=== PATIENT | female | born 1985 | race Caucasian/White ===

== ENCOUNTER 2024-05-15 15:05 | Emergency (ER) | payer BC, OTHER, SELFPAY ==
[2024-05-15] VITALS (10 sets, daily range): BP systolic 77–146; BP diastolic 59–91; PULSE 50–66; BMI 31.7
[2024-05-15 15:55] LABS: % Basophils 0.8 % (0-2); % Eosinophils 1.9 % (0-6); % Immature Granulocytes 0.3 % (0-0.5); % Lymphocytes 24.2 % (20.5-51.1); % Monocytes 5.7 % (1.7-9.3); % Neutrophils 67.1 % (42.2-75.2); Absolute Basophils 0.1 10^3/uL (0-0.2); Absolute Eosinophils 0.1 10^3/uL (0-0.7); Absolute Lymphocytes 1.8 10^3/uL (1.2-3.4); Absolute Monocytes 0.4 10^3/uL (0.1-0.6); Absolute Neutrophils 5.1 10^3/uL (1.4-6.5); Hematocrit 43.9 % (37.0-47.0); Hemoglobin 14.9 g/dL (12.0-16.0); Mean Corp Hgb Conc. 33.9 g/dL (33.0-37.0); Mean Corpuscular Hgb 30.2 pg (27.0-31.0); Mean Corpuscular Volume 88.9 fL (81.0-99.0); Mean Platelet Volume 10.6 fL (7.4-10.4); Nucleated Red Blood Cells % 0 %; Platelet Count 164 10^3/uL (130-400); Red Blood Cell Count 4.94 10^6/uL (4.20-5.40); Red Cell Dist. Width 12.6 % (11.5-14.5); White Blood Cell Count 7.6 10^3/uL (4.8-10.8)
[2024-05-15 15:56] LABS: Urine Albumin Negative (Neg - Trace); Urine Bilirubin Negative (Negative); Urine Character Clear (Clear); Urine Color Yellow; Urine Glucose Negative (Negative); Urine Ketone Negative (Negative); Urine Leukocyte Negative (Negative); Urine Nitrite Negative (Negative); Urine Occult Blood Negative (Negative); Urine Urobilinogen Negative (Neg - 1+)
[2024-05-15 15:59] LABS: HCG, Urine Qualitative Screen Negative
[2024-05-15 16:07] LABS: ALT (SGPT) 25 U/L (0-35); AST (SGOT) 35 U/L (14-36); Alkaline Phosphatase 29 U/L (38-126); Blood Urea Nitrogen 9 mg/dl (7-17); Calcium 9.8 mg/dl (8.4-10.2); Carbon Dioxide 28 mmol/L (22-30); Chloride 104 mmol/L (98-107); Glucose 95 mg/dl (70-99); Lipase 45 U/L (23-300); Potassium 4.2 mmol/L (3.5-5.1); Sodium 139 mmol/L (135-145); Total Bilirubin 0.8 mg/dl (0.2-1.3); Total Protein 7.4 g/dl (6.3-8.2); eGFR > 60.00
[2024-05-15] MEDS: NSS 1000 IV ×2 (18:30→20:35)
[2024-05-15 18:47] LABS: TSH Reflex To Free T4 1.11 uIU/ml (0.47-4.68)
[2024-05-15] MEDS: TYLENOL 1000 MG PO (21:08)
[2024-05-15] MEDS: ANTIVERT 25 MG PO (21:08)
--- NOTE | 2024-05-15 21:10 | ED.GENMED ---
History of Present Illness
<Katie Holt NP - Last Filed: 05/21/24 19:37>
General
Chief Complaint: Abdominal Symptoms
Source: patient
Exam Limitations: none
Time Seen by Provider: 05/15/24 17:01
Nursing documentation reviewed up to this point in time: agreed with
History of Present Illness
History of Present Illness:
Patient states she was away on vacation at last week. Returned home this weekend. Tried to go for a run on Saturday but the heat an humidity caused her to stop. She states she rehydrated and continued on with her day. Saturday PM she was
standing in her kitchen, felt faint and passed out. Hit her head on tile floor. Saturday she was seen at and dx with concussion. Given IV fluids and instructions to rest. States she has since developed headache, dizziness, nausea. Has had
concussions in the past but has not experienced these symptoms. Brought to ED by spouse for eval.
Past History
<Katie Holt NP - Last Filed: 05/21/24 19:37>
Past History
ED Past Medical History: None and Psychiatric
Social History
Tobacco: Non-smoker
Alcohol: Occasional
Personal:
Living: with family
Review of Systems
<Katie Holt NP - Last Filed: 05/21/24 19:37>
Review of Systems
Allergies reviewed?: Yes
All Other Systems: ROS reviewed and negative except as documented in HPI and ROS
Constitutional: Reports no symptoms
EENT: Reports no symptoms
Respiratory: Reports no symptoms
Cardiac: Reports no symptoms
ABD/GI: Reports nausea
: Reports no symptoms
Musculoskeletal: Reports no symptoms
Skin: Reports no symptoms
Neurological: Reports dizzy and headache
Psychiatric: Reports no symptoms
Phy Exam
<Katie Holt NP - Last Filed: 05/21/24 19:37>
General Physical Exam
General Presentation: well appearing and mild distress
General age: appears stated age
General Skin: warm and dry
General Habitus: normal
General Mental: alert
Cardiovascular Exam
Cardiovascular Exam: regular rate/rhythm and no edema
Pulmonary Exam
Pulmonary Exam: lungs clear and no respiratory distress
Neurological Exam
Neurological Exam: alert, oriented x3, CN II-XII intact, no motor deficits, no sensory deficits, speech normal and normal gait
Mental
Mental Status: oriented to person, oriented to place and oriented to time
Describe Speech: normal speech
Cranial
Cranial Nerves: normal and no facial asymetry
EOM (CN3/4/6): intact
Motor
Seizure Activity: none
Gait: normal
Right upper extremity: 4
Right lower extremity: 4
Left upper extremity: 4
Left lower extremity: 4
Bilateral upper extremities: 4
Bilateral lower extremities: 4
Sensory
Sensory Exam: intact
Cerebellar
Cerebellar Function: normal Romberg test
Musculoskeletal Exam
Musculoskeletal Exam: full ROM and neuro vasc intact
Skin Exam
Skin Exam: normal color, warm/dry and no rash
Psychiatric Exam
Psychiatric Exam: normal mood/affect
Course
<Katie Holt NP - Last Filed: 05/21/24 19:37>
Orders/Labs/Results
Orders:
Orders
05/15/24 15:19
IV Insert/Care/Rem.- Treatment PRN
Test Result ONCE
05/15/24 15:38
Complete Blood Count/With Diff Urgent
Comprehensive Metabolic Panel Urgent
HCG, Urine Qualitative Screen Urgent
Date Specimen was Collected: 05/15/24
Time Specimen was Collected: 15:19
Lipase Urgent
TSH Reflex To Free T4 Urgent
Comment: ADD ON
Urinalysis Reflex To Culture Urgent
Date Specimen was Collected: 05/15/24
Time Specimen was Collected: 15:19
05/15/24 17:50
Electrocardiogram (*1) Urgent
Reason for Study: Syncope
EKG- Treatment ONCE
Orthostatic VS- Treatment ONCE
0.9% Sodium Chloride 1000 ml [Nss] 1,000 ml IV BOLUS
05/15/24 17:51
Add On- LAB Urgent
Tests Added?: TSH reflex free T4
05/15/24 18:37
CT Head W/o Iv Contrast Urgent
Comment:
Reason For Exam: trauma
05/15/24 20:12
0.9% Sodium Chloride 1000 ml [Nss] 1,000 ml IV BOLUS
05/15/24 21:01
Acetaminophen [Tylenol] 1,000 mg PO NOW STA
Meclizine [Antivert] 25 mg PO NOW STA
Abnormal Lab Results
05/15/24
15:38
MPV 10.6 H fL
(7.4-10.4)
Alkaline Phosphatase 29 L U/L
(38-126)
05/15/24 15:38
05/15/24 15:38
Vital Signs
Initial and Last Documented VS:
Initial Vital Signs
Temp Pulse Resp BP Pulse Ox
98.3 F 71 18 130/79 99
05/15/24 15:17 05/15/24 15:17 05/15/24 15:17 05/15/24 15:17 05/15/24 15:17
Last Documented Vital Signs
Temp Pulse Resp BP Pulse Ox
98.3 F 69 18 125/85 99
05/15/24 15:17 05/15/24 22:15 05/15/24 15:17 05/15/24 22:00 05/15/24 15:17
antwan;Andre Cox DO - Last Filed: 05/15/24 21:37>
Orders/Labs/Results
Orders:
Orders
05/15/24 15:19
IV Insert/Care/Rem.- Treatment PRN
Test Result ONCE
05/15/24 15:38
Complete Blood Count/With Diff Urgent
Comprehensive Metabolic Panel Urgent
HCG, Urine Qualitative Screen Urgent
Date Specimen was Collected: 05/15/24
Time Specimen was Collected: 15:19
Lipase Urgent
TSH Reflex To Free T4 Urgent
Comment: ADD ON
Urinalysis Reflex To Culture Urgent
Date Specimen was Collected: 05/15/24
Time Specimen was Collected: 15:19
05/15/24 17:50
Electrocardiogram (*1) Urgent
Reason for Study: Syncope
EKG- Treatment ONCE
Orthostatic VS- Treatment ONCE
0.9% Sodium Chloride 1000 ml [Nss] 1,000 ml IV BOLUS
05/15/24 17:51
Add On- LAB Urgent
Tests Added?: TSH reflex free T4
05/15/24 18:37
CT Head W/o Iv Contrast Urgent
Comment:
Reason For Exam: trauma
05/15/24 20:12
0.9% Sodium Chloride 1000 ml [Nss] 1,000 ml IV BOLUS
05/15/24 21:01
Acetaminophen [Tylenol] 1,000 mg PO NOW STA
Meclizine [Antivert] 25 mg PO NOW STA
Abnormal Lab Results
05/15/24
15:38
MPV 10.6 H fL
(7.4-10.4)
Alkaline Phosphatase 29 L U/L
(38-126)
05/15/24 15:38
05/15/24 15:38
Vital Signs
Initial and Last Documented VS:
Initial Vital Signs
Temp Pulse Resp BP Pulse Ox
98.3 F 71 18 130/79 99
05/15/24 15:17 05/15/24 15:17 05/15/24 15:17 05/15/24 15:17 05/15/24 15:17
Last Documented Vital Signs
Temp Pulse Resp BP Pulse Ox
98.3 F 69 18 125/85 99
05/15/24 15:17 05/15/24 22:15 05/15/24 15:17 05/15/24 22:00 05/15/24 15:17
<Katie Holt NP - Last Filed: 05/21/24 19:37>
*Radiology
Radiology exam reviewed: radiology read reviewed
*Critical Care Note
Total Time (30-74mins, 75-104mins- exclusive of procedures): Not Applicable
<Katie Holt NP - Last Filed: 05/21/24 19:37>
Update Note
Update Note:
Case discussed with Dr. Cox who also evaluated this patient. Labs reviewed. Symptoms most like resulting from recent head injury. WIll discharge home. Close follow up with PCP. given instructions on s/s to return to ED and she is
ageeable to plan.
ED Attending Note
<Katie Holt NP - Last Filed: 05/21/24 19:37>
-
Portions of this chart may have been created with voice recognition software.� Occasional wrong word or��sound alike� substitutions may have occurred due to the inherent limitations of voice recognition software.
<Andre Cox DO - Last Filed: 05/15/24 21:37>
ED Attending Note
Patient seen and examined by attending physician: Yes
I performed the substantive portion of visit, reviewed & personally made and approve the management plan that is documented in note by myself or GRISELDA.: Yes
ED Attending Note:
Patient is a 38-year-old female who presents to the emergency department with dizziness and labile heart rate. Patient states that 5 days ago after coming home for sure she went out to 4 1 and a 95 degree heat and putting complete at 3 mile run.
Patient runs 5 days a week. Patient became overheated. Patient did her usual activities during the day and never felt fully back to baseline. Last night patient passed out and hit her head on the tile floor. Since that time patient's been
nauseous and had episodes of dizziness and having her heart beat run from 40-1 40 and back. Patient has had multiple studies and workup which have been unremarkable. On physical exam the patient does not appear to be in any distress.
Neurologically patient is intact. No signs of any cardiac issues. On review of the patient's workup the studies suggest post concussive syndrome. Patient will be discharged on meclizine and referred to neurology.
Discharge Plan
Departure
Patient Disposition: Home (Routine Discharge)
Date of Disposition: 05/15/24
Time of Disposition: 22:05
Patient with high blood pressure during this ER visit?: No
Condition: Good
Covid-19: Not Applicable
Discharge Problem:
Head injury
Instructions: Head injury in adults, Concussion, Adult ED
Prescriptions:
New
meclizine 25 mg tablet
25 mg PO TID PRN (Reason: dizziness) Qty: 20 0RF
Referrals:
Fred Avina MD [Active] - Call in 1-3 days for appt
Candelario Gleason MD [Active] - Call in 1-3 days for appt
NONE,* [Family Provider] -
Interventions
Interventions:
*Risk Screen - Suicide Last Done: 05/15/24 15:17
*General Assessment Last Done: 05/15/24 15:17
*Neglect/Abuse Screening Last Done: 05/15/24 15:17
ED- Fall Risk Assessment Last Done: 05/15/24 22:31
*ED COVID-19 Vaccine History Last Done: 05/15/24 15:17
*Nursing Disposition Last Done: 05/15/24 22:31
[id number] Assessment Last Done: 05/15/24 18:00
Discharge Date and Time
Discharge Date/Time: 05/15/24 22:33
Print Language: [place]
== END 2024-05-15 22:33 | disposition home or self-care (01) ==
LOC: EMR 15:05
PROVIDERS: EMERGENCY PHYSICIAN Emergency Medicine
DX: S09.90XA Unspecified injury of head, initial encounter (principal); X58.XXXA Exposure to other specified factors, initial encounter
CPT/HCPCS: 99284; 96360; 96361; 70450; 80053; 81003; 81025; 83690; 84443; 85025; 93005

== ENCOUNTER → 2024-08-26 07:31 | Outpatient (REF) | payer BC, OTHER, SELFPAY | LOC: RCS 07:31 | PROVIDERS: ATTENDING PHYSICIAN Internal Medicine | DX: R55 Syncope and collapse (principal); R00.1 Bradycardia, unspecified | CPT/HCPCS: 93306 ==

== ENCOUNTER → 2024-09-08 06:40 | Outpatient (REF) | payer BC, OTHER, SELFPAY | LOC: RSP 06:40 | PROVIDERS: ATTENDING PHYSICIAN Internal Medicine; FAMILY PHYSICIAN Student in an Organized Health Care Education/Training Program | DX: R06.02 Shortness of breath (principal) | CPT/HCPCS: 94727; 94729; 88738; 94060 ==